=== PATIENT | female | born 1995 | race Native Hawaiian/Other Pacific Islander ===

== ENCOUNTER 2016-11-28 08:29 | Outpatient (CLI) | payer OTHER | END 2016-11-28 08:41 | disposition short-term general hospital (02) | LOC: AMB 08:29 | DX: J70.5 Respiratory conditions due to smoke inhalation (principal); M79.642 Pain in left hand; M79.641 Pain in right hand; T23.152A Burn of first degree of left palm, initial encounter; T23.151A Burn of first degree of right palm, initial encounter; X08.8XXA Exposure to other specified smoke, fire and flames, initial encounter; Y92.098 Other place in other non-institutional residence as the place of occurrence of the external cause | CPT/HCPCS: A0425; A0427 ==

== ENCOUNTER 2016-11-28 08:42 | Emergency (ER) | payer OTHER ==
[~2016-11-28] VITALS: Ht 167.6 cm; Wt 65.3 kg
[2016-11-28 11:55] VITALS: BP 110/78; TEMP 98.7
== END 2016-11-28 11:55 | disposition home or self-care (01) ==
LOC: ED 08:42
DX: T59.811A Toxic effect of smoke, accidental (unintentional), initial encounter (principal); J70.5 Respiratory conditions due to smoke inhalation; X08 Exposure to other specified smoke, fire and flames
CPT/HCPCS: 81025; 96374; 99283; J2930

== ENCOUNTER 2018-05-09 13:55 | Emergency (ER) | payer OTHER ==
[~2018-05-09] VITALS: Ht 170.2 cm; Wt 70.8 kg
[2018-05-09 14:29] VITALS: TEMP 97.7
[2018-05-09 15:16] LABS: PLATELET COUNT 405 K/uL (152-353)
[2018-05-09 15:26] LABS: POTASSIUM 3.9 mmol/L (3.6-5.2)
[2018-05-09 16:20] VITALS: BP 132/68
== END 2018-05-09 16:20 | disposition home or self-care (01) ==
LOC: ED 13:55
DX: J20.9 Acute bronchitis, unspecified (principal)
CPT/HCPCS: 36415; 80053; 81025; 85027; 87077; 87081; 87185; 87880; 99283

== ENCOUNTER 2018-12-14 11:45 | Emergency (ER) | payer OTHER ==
[~2018-12-14] VITALS: Ht 170.2 cm; Wt 70.8 kg
[2018-12-14 11:52] VITALS: TEMP 97.9
[2018-12-14 14:51] LABS: PLATELET COUNT 204 K/uL (152-353)
[2018-12-14 16:10] VITALS: BP 121/68
== END 2018-12-14 16:12 | disposition home or self-care (01) ==
LOC: ED 11:45
PROVIDERS: Family Medicine
DX: R53.83 Other fatigue (principal); F41.9 Anxiety disorder, unspecified; R51 Headache
CPT/HCPCS: 36415; 80053; 81000; 81025; 85027; 99283